=== PATIENT | female | born 1990 | race Hispanic/Latino ===

== ENCOUNTER 2021-05-14 07:25 | Inpatient (IN) | payer OTHER, SELFPAY ==
[2021-05-14] VITALS (83 sets, daily range): BP systolic 71–157; BP diastolic 16–128; PULSE 69–210; RESP 14–18; TEMP 36–36.6; O2SAT 94–100; BMI 33.2
[2021-05-14] MEDS: LACTATED RINGERS 1,000 ML 125 ML IV CONT ×2 (08:12→12:01)
[2021-05-14 08:15] LABS: Basophils Percent Auto 0.4 % (0.2-1.2); Eosinophils Absolute Auto 0.1 K/mm3 (0-0.3); Eosinophils Percent Auto 1.5 % (0-4.4); Hemoglobin 12.2 g/dL (12.0-15.0); Immature Granulocyte Percent A 1.3 % (0-0.5); Lymphocytes Absolute Auto 1.63 K/mm3 (0.9-3.2); Lymphocytes Percent Auto 20.6 % (18.3-44.2); Mean Corpuscular HGB Conc 33.9 g/dl (32-36); Mean Corpuscular Hemoglobin 32.9 pg (26-34); Monocytes Absolute Auto 0.7 K/mm3 (0.1-0.6); Monocytes Percent Auto 9.4 % (2.6-8.5); Neutrophils Absolute Auto 5.3 K/mm3 (1.3-6.7); Neutrophils Percent Auto 66.8 % (45.5-73.1); Platelet Count Result 175 k/mm3 (150-375); Red Blood Count 3.71 M/mm3 (4.2-5.4); White Blood Count 7.9 K/mm3 (4.5-10.0)
[2021-05-14] MEDS: AMPICILLIN 2 GM/NS 100 ML 2 GM/100 ML BAG IVPB (08:15)
--- NOTE | 2021-05-14 08:42 | LDADM ---
This patient, Caren Peerz, was admitted to Labor/Delivery/Recovery 119 on 05/14/21 at 07:25. Plans for labor, pain management and were discussed with patient. Patient/family oriented to hospital policies and general routines including ID bracelet, bed and alarms, visiting hours, pain management, procedures, bathroom and other care routines, personal items, smoking policy, room service/diet and guest tray routines, security routines, and visiting hours. Patient/Family are encouraged to report perceived risks to care and to ask questions if they do not understand what they are told or what they should do. See OBIX for further documentation.
--- NOTE | 2021-05-14 09:18 | P.PNAN_ITS ---
Anes - Initial Pre Proc Eval Procedure: Operation Date: 05/14/21 12:00 Proposed Procedures p Section - Tristan Govea MD Date/Time: 05/14/21 09:18 Surgeon: Tristan Govea MD Pre Op Diagnosis: SROM Patient Data Age: 30 Gender: F Height: 1.75 m Weight: 102 kg Last Vital Signs Temp 36.6 C 05/14/21 08:15 Pulse 89 05/14/21 09:16 BP 101/64 05/14/21 09:16 Allergies Allergy/AdvReac Type Severity Reaction Status Date / Time No Known Allergies Allergy Verified 05/13/21 12:36 Home Medications Medication Instructions Recorded Confirmed Type prenat.vits,pawan,wpr-ekox-phuxe 1 tablet PO DAILY 05/13/21 05/13/21 History [ #2] Laboratory Tests 05/14/21 05/14/21 08:06 08:06 WBC 7.9 K/mm3 K/mm3 (4.5-10.0) RBC 3.71 M/mm3 L M/mm3 (4.2-5.4) Hgb 12.2 g/dL g/dL (12.0-15.0) Hct 36.0 % L % (37.0-47.0) MCV 97.0 fl fl (80-100) MCH 32.9 pg pg (26-34) MCHC 33.9 g/dl g/dl (32-36) RDW 13.0 % % (11.5-14.5) Plt Count 175 k/mm3 k/mm3 (150-375) MPV 11.0 fl H fl (7.4-10.4) Immature Gran % (Auto) 1.3 % H % (0-0.5) Neut % (Auto) 66.8 % % (45.5-73.1) Lymph % (Auto) 20.6 % % (18.3-44.2) Yell % (Auto) 9.4 % H % (2.6-8.5) Eos % (Auto) 1.5 % % (0-4.4) Baso % (Auto) 0.4 % % (0.2-1.2) Lymph # (Auto) 1.63 K/mm3 K/mm3 (0.9-3.2) Yell # (Auto) 0.7 K/mm3 H K/mm3 (0.1-0.6) Eos # (Auto) 0.1 K/mm3 K/mm3 (0-0.3) Baso # (Auto) 0.0 K/mm3 K/mm3 (0.0-0.1) Abs Immat Gran (auto) 0.10 K/mm3 H K/mm3 (0.00-0.031) Absolute Neuts (auto) 5.3 K/mm3 K/mm3 (1.3-6.7) Absolute Nucleated RBC 0.0 K/mm3 K/mm3 (0.0-0.012) Nucleated RBC % 0.0 % % (0.0-0.2) RPR Pending Patient hx anesthesia problems: none Family hx anesthesia problems: none [facility] Family History Family History (Updated 05/13/21 @ 12:38 by Rayray Jimenez RN) Father High cholesterol Social History Social History Smoking status: Never smoker Second hand tobacco smoke exposure: No Substance use: never Spiritual care concerns: No Anes - Eval Final PreProcedure Day of Procedure 05/14/21 09:18 Patient weight: obese Heart: regular rate and rhythm Lungs: clear to auscultation and normal air movement Airway: Mallampati scale class II Neurological: alert and oriented Last oral intake: >/= 8 hours ASA classification: II Emergent: no Anesthetic plan: proceed Anesthesia type and monitoring: regional spinal Informed Consent: The patient's anesthetic plan and its attendant risks and benefits were discussed with the patient/family/POA. Questions were solicited and answers provided to the satisfaction of the patient/family/POA.
[2021-05-14] MEDS: LACTATED RINGERS 1,000 ML 999 ML IV CONT (10:25)
--- NOTE | 2021-05-14 12:12 | WPDHPUPDATE1 ---
History and Physical Update Update Date/Time: 05/14/21 12:12 History and Physical has been reviewed, including an updated exam of the patient. There are NO changes in the patient's condition. Risks, benefits, and alternatives have been discussed and questions answered. Patient agrees to proceed with procedure.
--- NOTE | 2021-05-14 12:13 | PM.IMHP ---
H&P: HPI History of Present Illness Date/Time: 05/14/21 12:13 this patient is a 30-year-old multiparous female at term with spontaneous rupture of membranes and a breech infant. We have agreed to proceed with delivery. She denies any vaginal bleeding or contractions. She denies any nausea, vomiting, fever, chills. She denies any chest pain or shortness of breath. She understands the risks involved in the procedure. She understands the procedure in detail. She understands that injuries may occur that result in hospitalization, more surgery and severe illness. She understands the risk of hemorrhage and infection. Chief Complaint: Breech Review of Systems Constitutional: Constitutional: Reports no additional constitutional complaints, Denies fatigue, Denies headache(s), Denies lethargy and Denies weakness Eyes: Eyes: Reports no additional eye complaints, Denies blurry vision and Denies photophobia ENT: Reports as per HPI, Denies headache(s) and Denies neck pain Cardiovascular: Cardiovascular: Denies chest pain, Denies diaphoresis, Denies leg edema, Denies palpitations and Denies dyspnea Respiratory: Respiratory: Denies hemoptysis, Denies dyspnea and Denies wheezing Gastrointestinal: Gastrointestinal: Denies abdominal pain, Denies melena, Denies bloating, Denies hematochezia, Denies nausea and Denies vomiting Genitourinary: Genitourinary: Reports no additional female genitourinary complaints Musculoskeletal: Musculoskeletal: Denies joint swelling, Denies neck pain, Denies numbness and Denies stiffness Neurologic: Denies Abnormal speech present, Denies confusion, Denies headache(s), Denies numbness and Denies weakness Psychiatric: Psychiatric: Denies anxiety, Denies confusion, Denies depression, Denies homicidal ideation and Denies suicidal ideation Endocrine: Endocrine: Denies fatigue and Denies palpitations Allergic/Immunologic: Allergic/Immunologic: Denies wheezing [facility] Family History Family History (Updated 05/13/21 @ 12:38 by Rayray Jimenez RN) Father High cholesterol Social History Social History Smoking status: Never smoker Second hand tobacco smoke exposure: No Substance use: never Spiritual care concerns: No Meds Home Medications and Allergies Home Medications Medication Instructions Recorded Confirmed Type prenat.vits,pawan,cmu-uhvv-nkcci 1 tablet PO DAILY 05/13/21 05/13/21 History [ #2] Allergies Allergy/AdvReac Type Severity Reaction Status Date / Time No Known Allergies Allergy Verified 05/13/21 12:36 Vital Signs Vital Signs - 24 hr 05/14/21 08:01 05/14/21 08:15 05/14/21 08:16 Temperature 98 F Pulse Rate 95 96 Blood Pressure 99/65 L 98/65 L 05/14/21 08:31 05/14/21 08:46 05/14/21 09:01 Temperature Pulse Rate 89 104 H 133 H Blood Pressure 111/73 109/64 108/69 05/14/21 09:16 05/14/21 09:31 05/14/21 09:46 Temperature Pulse Rate 89 87 89 Blood Pressure 101/64 101/65 101/62 05/14/21 10:01 05/14/21 10:16 05/14/21 10:31 Temperature Pulse Rate 82 81 89 Blood Pressure 98/61 L 100/60 95/72 L 05/14/21 10:46 05/14/21 11:01 05/14/21 11:16 Temperature Pulse Rate 84 89 89 Blood Pressure 98/58 L 107/65 101/64 05/14/21 11:31 05/14/21 11:46 05/14/21 12:01 Temperature Pulse Rate 87 96 85 Blood Pressure 100/64 104/65 102/64 Exam Const: General: healthy appearing, comfortable and no acute distress; No confusion Orientation/consciousness: No confusion Eyes: Direct Ophthalmoscopy: No photophobia Resp: Auscultation: clear to auscultation bilaterally, no rales, no rhonchi and no wheezes Cardio: Rate: regular rate Heart sounds: no click, no murmurs and no rubs GI: Inspection: non-distended GI Palp: No abdominal tenderness Auscultation: normal bowel sounds Neuro: General: No confusion Speech: No Abnormal speech present Extrem: General: normal to inspection, no pedal edema and no calf tenderness
[2021-05-14] MEDS: KETOROLAC 30 MG/ML VIAL (*BKC) IV PUSH (13:03)
--- NOTE | 2021-05-14 13:30 | W.PM.PROC2 ---
Procedure Note - Detailed Date of Procedure 05/14/21 Pre-op Diagnosis SROM, breech presentation, term Post-op Diagnosis same Procedure Performed Low-transverse section Surgeon Tristan Govea MD Anesthesia spinal Findings Breech presentation, Normal gestational maternal anatomy, average size infant, normal Apgars. Description of Procedure The patient was taken the operating room. She was prepped and draped in dorsal supine position with a leftward tilt. This was done after spinal anesthetic was applied. A low-transverse skin incision was made and carried down till of the fascia with the knife. The fascial incision was made with the knife. The fascial incision was extended laterally with Tamayo scissors. The fascia was tented upward superiorly and inferiorly the rectus muscles were dissected off bluntly. The rectus muscles were the midline. The preperitoneal fat and peritoneum were dissected open bluntly at the superior aspect of the rectus muscles. The peritoneal incision was extended superior and inferior with good position of bladder. The uterine incision was made with a scalpel down to the level of the amniotic cavity. The amniotic cavity was entered bluntly. The was delivered. The cord was clamped and cut and the infant was handed off to waiting pediatric staff. Cord bloods were obtained. The placenta was removed manually. The uterus was exteriorized. The uterus was cleared of all clots, debris and membranes. The uterus was closed in 0 Vicryl running lock fashion. An imbricating over a was placed along the incision line as well. The uterus was returned to the abdomen. The gutters were cleared of all clots and debris. The fascia was closed with 0 Vicryl running fashion. The subcutaneous tissue was irrigated pinpoint bleeders were cauterized. The skin was closed with subcuticular absorbable henrique. The skin incision line was covered with glue. The patient tolerated the procedure well. She has taken recovery room in stable condition. Sponge lap and needle counts were correct x2. Estimated Blood Loss 395 Urine Output 650 Complications No immediate complications Condition stable Disposition PACU
[2021-05-14] MEDS: OXYTOCIN 30 UNITS/NS 500 ML 30 UNITS/500 ML BAG 125 UNITS IV CONT (13:35)
[2021-05-14] MEDS: ONDANSETRON INJ 4 MG/2 ML VIAL IV PUSH (16:30)
--- NOTE | 2021-05-14 16:39 | PC.NURSE ---
1548 Pt admitted to room 286 per stretcher from labor and delivery after primary for breech presentation today at [address] Govea. Mother is a and is choosing to breast feed baby. FOB present. Couple oriented to room, staffing and procedures. Mother c/o intermittent nausea. Encouraged to rest. Admission folder not reviewed at this time. Pt's VSS and assessment WNL.
[2021-05-14] MEDS: DEXTROSE 5%/0.45% SOD CHL 1,000 ML 125 ML IV CONT (18:09)
--- NOTE | 2021-05-14 20:10 | PC.NURSE ---
Pt given a Breast pump from [employer]; paperwork completed, pt signed as directed and papers faxed to [facility] at 2004.
[2021-05-14] MEDS: ACETAMINOPHEN 325 MG TABLET 650 MG PO (23:30)
[2021-05-14] MEDS: IBUPROFEN 600 MG TABLET PO (23:30)
[2021-05-15] MEDS: HYDROcodone/acetaminophen (*CRX) 10-325 MG TABLET 1 TAB PO ×6 (01:45→21:00)
[2021-05-15 04:49] VITALS: BP 98/60; PULSE 87; RESP 16; TEMP 36.8; O2SAT 99
[2021-05-15 04:56] LABS: Basophils Percent Auto 0.3 % (0.2-1.2); Eosinophils Absolute Auto 0.1 K/mm3 (0-0.3); Eosinophils Percent Auto 1.1 % (0-4.4); Hematocrit 33.6 % (37.0-47.0); Hemoglobin 11.3 g/dL (12.0-15.0); Immature Granulocyte Absolute 0.03 K/mm3 (0.00-0.031); Immature Granulocyte Percent A 0.3 % (0-0.5); Lymphocytes Absolute Auto 1.47 K/mm3 (0.9-3.2); Mean Corpuscular HGB Conc 33.6 g/dl (32-36); Mean Corpuscular Hemoglobin 32.9 pg (26-34); Mean Platelet Volume 11.4 fl (7.4-10.4); Monocytes Absolute Auto 0.9 K/mm3 (0.1-0.6); Monocytes Percent Auto 8.5 % (2.6-8.5); Neutrophils Percent Auto 75.8 % (45.5-73.1); Platelet Count Result 169 k/mm3 (150-375); Red Blood Count 3.43 M/mm3 (4.2-5.4); White Blood Count 10.5 K/mm3 (4.5-10.0)
[2021-05-15 06:40] VITALS: PULSE 80; RESP 16; O2SAT 97
[2021-05-15] MEDS: IBUPROFEN 600 MG TABLET PO ×3 (07:10→21:30)
[2021-05-15] MEDS: MULTIVIT/MIN/PREN/FOL AC/IRON TABLET 1 TAB PO (07:11)
[2021-05-15] MEDS: DOCUSATE SODIUM 100 MG CAPSULE PO ×2 (07:11→18:18)
--- NOTE | 2021-05-15 07:31 | PM.OBPNVD ---
OB - PN: Subj Subjective Date/time seen: 05/15/21 07:31 Patient comments: no complaints and pain well controlled baby status: doing well [place] feeding status: exclusively breast feeding Narrative: POD 1 from primary CS. Doing well. Normal lochia. Eating, ambulating, deluca out. Has not voided yet. OB - PN: Obj Data Labs CBC & Chem 7: 05/15/21 04:20 Labs: Laboratory Results - last 24 hr 05/14/21 05/14/21 05/15/21 08:06 08:06 04:20 WBC 7.9 10.5 H RBC 3.71 L 3.43 L Hgb 12.2 11.3 L Hct 36.0 L 33.6 L MCV 97.0 98.0 MCH 32.9 32.9 MCHC 33.9 33.6 RDW 13.0 13.0 Plt Count 175 169 MPV 11.0 H 11.4 H Immature Gran % (Auto) 1.3 H 0.3 Neut % (Auto) 66.8 75.8 H Lymph % (Auto) 20.6 14.0 L [place] % (Auto) 9.4 H 8.5 Eos % (Auto) 1.5 1.1 Baso % (Auto) 0.4 0.3 Lymph # (Auto) 1.63 1.47 [place] # (Auto) 0.7 H 0.9 H Eos # (Auto) 0.1 0.1 Baso # (Auto) 0.0 0.0 Abs Immat Gran (auto) 0.10 H 0.03 Absolute Neuts (auto) 5.3 8.0 H Absolute Nucleated RBC 0.0 0.0 Nucleated RBC % 0.0 0.0 Blood Type A Positive Antibody Screen Negative OB - PN A/P Plan day: 1 Plan: routine care Comments: routine post op care circ today, consented Time Spent With Patient Time: Total time spent is greater than 50% in coordination of care (as documented) at patient's floor/unit and/or counseling patient: Exam Narrative: Exam Narrative: NAD abdomen soft, appropriately tender, incision CDI Extremities nontender with 1+ edema
[2021-05-15 07:50] VITALS: BP 99/68; PULSE 80; RESP 16; TEMP 37; O2SAT 97
[2021-05-15 08:24] LABS: Rapid Plasma Reagin Non-Reactive (NonReactive)
--- NOTE | 2021-05-15 08:54 | WPDANLDPN2 ---
Anes-Prog Note L&D Date/Time: 05/15/21 08:54 Comfortable throughout: section Neuraxial method: spinal Epidural/Spinal procedure site: clean & non-tender Neuro status: Neuro function grossly intact. Cardiovascular status: normal Respiratory status: normal Airway patency: baseline Mental status: baseline Post-Op hydration status: normal Vital Signs: Last Vital Signs Temp 36.8 C 05/15/21 04:49 Pulse 87 05/15/21 04:49 Resp 16 05/15/21 04:49 BP 98/60 L 05/15/21 04:49 Pulse Ox 99 05/15/21 04:49 Pain score (VAS): 2 I/O: Intake & Output 05/14/21 05/15/21 05/15/21 23:59 07:59 15:59 Output Total 600 Balance -600 Post-procedural complaints: pruritis Patient feedback: Patient satisfied with anesthetic care.
--- NOTE | 2021-05-15 08:55 | WPDANLDNPN2 ---
Anes-Prog Note L&D-Neuraxial Date/Time: 05/15/21 08:55 Neuraxial medications: intrathecal PF morphine Opiod-related complaints: pruritis Patient feedback: Patient satisfied with post-operative pain management.
[2021-05-15] MEDS: SIMETHICONE 80 MG TAB.CHEW PO ×3 (10:50→22:53)
[2021-05-15 12:08] VITALS: BP 101/60; PULSE 82; RESP 16; TEMP 37.1; O2SAT 100
[2021-05-15 20:00] VITALS: BP 101/67; PULSE 96; RESP 16; TEMP 36.3; O2SAT 98
[2021-05-16] MEDS: HYDROcodone/acetaminophen (*CRX) 10-325 MG TABLET 1 TAB PO ×2 (00:11→03:08)
[2021-05-16] MEDS: IBUPROFEN 600 MG TABLET PO ×2 (03:08→10:56)
[2021-05-16] MEDS: SIMETHICONE 80 MG TAB.CHEW PO ×2 (03:08→08:36)
[2021-05-16] MEDS: DOCUSATE SODIUM 100 MG CAPSULE PO ×2 (08:36→14:53)
[2021-05-16] MEDS: MULTIVIT/MIN/PREN/FOL AC/IRON TABLET 1 TAB PO (08:36)
[2021-05-16] MEDS: HYDROcodone/acetaminophen (*CRX) 5-325 MG TABLET 1 TAB PO ×2 (08:36→14:53)
[2021-05-16 09:00] VITALS: BP 96/65; PULSE 82; RESP 16; TEMP 36.8; O2SAT 96
--- NOTE | 2021-05-16 10:00 | PM.OBPNVD ---
OB - PN: Subj Subjective Date/time seen: 05/16/21 10:00 Patient comments: no complaints, pain well controlled, tolerating diet and flatus present baby status: doing well OB - PN: Obj Data Labs CBC & Chem 7: 05/15/21 04:20 OB - PN A/P Plan day: 2 Plan: routine care and discharge home (Follow up in 1 week) Time Spent With Patient Time: Total time spent is greater than 50% in coordination of care (as documented) at patient's floor/unit and/or counseling patient: Time with patient: less than 15 minutes Review of Systems Review of Systems: All systems reviewed & are unremarkable except as noted in HPI and below Exam Narrative: Exam Narrative: Fundus firm. Vaginal flow controlled. Incision dry and intact. Negative homans. No redness, warmth, or pain of lower ext. Const: General: comfortable Chest: Breast/axilla inspection: normal inspection of the breasts Resp: Effort & Inspection: normal respiratory effort Auscultation: clear to auscultation bilaterally Cardio: Rate: regular rate GI: GI Palp: Yes Soft to palpation Psych: Appearance: grossly normal Affect: normal affect Attitude: cooperative Thought content: Yes Normal thought content present Judgement: Good judgement present (Psych)
[2021-05-18 07:57] VITALS: BP 105/70; PULSE 85; RESP 16; TEMP 36.6; O2SAT 98
--- NOTE | 2021-06-08 12:39 | PM.OBDSVD ---
DS: Admitting Diagnosis Admitting Diagnosis Admitting Diagnosis: section OB - DS: Summary OB Procedures : None OB Procedures Intrapartum: OB Procedures: : None Peripartum Data Procedures: Procedures Operation Date: 05/14/21 12:00 Actual Procedure Side Surgeon p Section Tristan Govea MD Time Spent with Patient Time attestation: Total time spent providing and/or coordinating discharge services: Discharge Plan Discharge Attending physician on discharge: Tristan Govea Consulting providers: Essie Sun ; Jamari Marrero Discharging Clinician: Essie Sun Patient Disposition: Home, Self-Care Activity: no driving and pelvic rest Diet: as tolerated Wound Care Instructions: follow printed instructions Discharge Instructions: Education: Mom and Baby Guide Given to: Mother Follow-Up: Call your delivering provider's office for an appointment to be seen in: as directed Mom and baby should come to the [facility] for the follow-up appointment. Appointment Date/Time: May 18, 2021 at 8:00 am What to expect at your follow-up visit: Blood Pressure Check Physical Assessment Call [phone] if you are unable to keep your appointment time. BREAST CARE: * Wear a snug supportive bra. * For engorgement discomfort: Breast Feeding: * Apply warm moist washcloths * Express milk as needed to relieve engorgement * Wear loose clothing * For sore nipples: * Identify correct latch-on * Apply warm moist washcloths before and after nursing * Air dry nipples after nursing * May apply Lansinoh cream to nipples ABDOMINAL INCISION: (if applicable) * Allow incision to air dry * Do NOT use lotions for powders on your incision * When showering, allow soap and water to run over the incision, but do not wash incision EPISIOTOMY/PERINEAL CARE: * Until bleeding stops, use your issa bottle after urinating * Change your pad frequently throughout the day * No tub baths until seen by your physician - You may shower ACTIVITY: * Rest as much as possible. * Do not exercise or lift anything heavier than your baby (such as laundry or other children.) * Avoid stairs or driving as much as possible. * Do not put anything into the vagina. No douching, tampons, or sexual activity until seen by physician. NOTIFY PHYSICIAN IF YOU HAVE ANY QUESTIONS OR IF ANY OF THE FOLLOWING SYMPTOMS OCCUR: * If your incision becomes red, swollen, or more painful than what you have experienced in the hospital. * If your vaginal bleeding becomes foul smelling. * If your vaginal bleeding becomes more heavy than a period or if your bleeding changes from pink to bright red. However, you may pass an occasional walnut-sized clot once or twice for the first week . * If you experience a sharp, shooting pain in you calves. * If you discover a hard, reddened area on your breast or if you experience flu-like symptoms. DIET: * Eat regular, well-balanced meals. * Drink plenty of fluids daily. If , drink to thirst. Stand Alone Forms: General Discharge Information Follow-up/Referrals: Tristan Govea MD [Physician] - Discharge Medications: New ibuprofen 600 mg Tablet 600 mg PO Q6H PRN (Reason: Cramping) Qty: 20 RF: 0 hydrocodone-acetaminophen 5-325 mg tablet 1 tablet PO Q4H PRN (Reason: pain) Qty: 20 RF: 0 Continued prenat.vits,pawan,pfj-akns-seawu Tablet 1 tablet PO DAILY RF: 0 Date of admission: 05/14/21 07:25 Primary Care Provider: PHYSICIAN,CAP MACHINE OPERATOR Admitting Provider: Tristan Govea Attending physician on admission: Tristan Govea Condition: Stable
== END 2021-05-16 17:20 | disposition home or self-care (01) | DRG 540 ==
LOC: ANHLDR 07:45 → ANHOB2 15:54
PROVIDERS: Admitting Provider Obstetrics & Gynecology; Visit Provider Obstetrics & Gynecology
PROC: 10D00Z1 Extraction of Products of Conception, Low, Open Approach (ICD-10-PCS; CPT 59514; principal; 2021-05-14 12:00)
DX: O32.1XX0 Maternal care for breech presentation, not applicable or unspecified (principal); Z3A.36 36 weeks gestation of pregnancy; Z37.0 Single live birth
CPT/HCPCS: 36415; 84112; 85025; 86592; 86850; 86900; 86901; A9270; J0131; J0290; J1885; J2274; J2405; J2590; J7120